=== PATIENT | male | born 1960 | race Caucasian/White ===

== ENCOUNTER 2020-04-24 14:53 | Outpatient (CLI) | payer BC, SELFPAY ==
--- NOTE | ~2020-04-24 | CT_ITS ---
EXAMINATION: CT lung screening DATE: 04/24/2020 15:22 INDICATION: History of tobacco use. COPD. TECHNIQUE: Computed tomography (CT) of the chest was performed without intravenous contrast. The dose -length product was 325.31 mGy-cm. Automated exposure control and iterative reconstruction technique were employed. COMPARISON: Chest x-ray dated 10/01/2013 FINDINGS: Heart size normal. No significant pleural or pericardial effusion. There is atherosclerosis of the aorta and coronary arteries. No evidence for aneurysm. No thoracic lymphadenopathy. There are multiple small 1-2 mm miliary nodules in the subpleural space predominantly affecting the upper lobe s. There are a few calcified granulomas. There is lingular and left lower lobe atelectasis. No focal pneumonia. No endobronchial lesions. No acute osseous abnormality. IMPRESSION: 1. Lung-RADS category 2: Benign appearance or behavior. Continue annual screening with noncontrast lo w-dose chest CT in 12 months. Reviewed, dictated and finalized at location A. IMPRESSION: 1. Lung-RADS category 2: Benign appearance or behavior. Continue annual screeni ng with noncontrast low-dose chest CT in 12 months.
== END 2020-04-24 14:54 | disposition home or self-care (01) ==
PROVIDERS: PCP Internal Medicine; Visit Provider Internal Medicine
DX: Z72.0 Tobacco use (principal)
CPT/HCPCS: G0297

== ENCOUNTER → 2020-09-16 15:17 | Outpatient (CLI) | payer BC, SELFPAY ==
--- NOTE | ~2020-09-16 | CT_ITS ---
EXAMINATION: CT abdomen pelvis wo con DATE: 09/16/2020 15:36 INDICATION: Acute onset left flank pain. Microscopic hematuria. TECHNIQUE: Computed tomography (CT) of the abdomen and pelvis was performed without intravenous contr ast. Automated exposure control and iterative reconstruction technique were employed. The dose-length product was 1118.83 mGy-cm. COMPARISON: 05/13/2007 FINDINGS: Mild discoid atelectasis in the left lower lobe. Heart size is normal. No pericardial or pleural effu wolfgang. Mild diffuse hepatic steatosis with focal sparing along the gallbladder fossa. Gallbladder, spl een, pancreas and bilateral adrenal glands are normal. Kidneys and ureters are normal with no urolith iasis, hydroureteronephrosis or perinephric/ureteral stranding. There is moderate colonic diverticulo sis with a sigmoid predominance. There is no adjacent inflammatory change to suggest diverticulitis. Small bowel and appendix are normal. Bladder is normal. No free intraperitoneal gas or fluid. Small bilateral fat-containing inguinal hernias. No pathologically enlarged abdominal or pelvic lymphadeno concepción. Mild to moderate degenerative skeletal changes in the spine and bilateral hip and sacroiliac j oints. IMPRESSION: 1. No urolithiasis or acute intra-abdominal/pelvic process. 2. Diverticulosis. Reviewed, dictated and finalized at location A. [employer]
== END ==
PROVIDERS: PCP Internal Medicine; Visit Provider Internal Medicine
DX: R10.9 Unspecified abdominal pain (principal); R31.29 Other microscopic hematuria; K57.30 Diverticulosis of large intestine without perforation or abscess without bleeding
CPT/HCPCS: 74176